=== PATIENT | male | born 1940 | race Caucasian/White ===

== ENCOUNTER → 2020-10-01 11:21 | Outpatient (CLI) | payer MEDICARE, OTHER, SELFPAY ==
[2020-10-01 13:15] LABS: COVID19 -Nasal RAPID Negative (Negative)
== END ==
PROVIDERS: Family Provider Family Medicine; PCP Family Medicine; Visit Provider Physician Assistant
DX: Z01.812 Encounter for preprocedural laboratory examination (principal); Z20.822 Contact with and (suspected) exposure to COVID-19
CPT/HCPCS: 87635; C9803

== ENCOUNTER → 2020-10-02 10:40 | Outpatient (CLI) | payer MEDICARE, OTHER, SELFPAY ==
--- NOTE | 2020-10-02 11:46 | PM.TREADMILL ---
Cardiac Stress Test Report Referral & Results Date Patient Seen: 10/02/20 Time Patient Seen: 11:46 Requesting provider: Prieto Best Indication: chest pain Rest ECG: sinus rhythm Procedure Note: After Lexiscan injection had minimal dyspnea and no chest discomfort No significant ST changes on ECG after Lexiscan injection Occasional PVCs Impression: Normal Lexiscan stress test MIBI images pending Please note: Actual ECG tracings can be found in the PACS system.
--- NOTE | 2020-10-03 23:45 | DI.NM.S_ITS ---
DATE OF SERVICE: 10/02/2020 PROCEDURE PERFORMED: Pharmacologic vasodilator stress and rest myocardial perfusion imaging with gating to assess ejection fraction and regional wall motion. ORDERING PROVIDER: Dr. Prieto Best. INDICATIONS: The patient is an 80-year-old male with a history of CABG with exertional chest discomfort. PHARMACOLOGIC STRESS: Per protocol, 0.4 mg of regadenoson was infused, augmented by low-level walking on the treadmill. With this, he had a normal hemodynamic response, achieving a maximum heart rate of 126 BPM (91% of his predicted maximum). He had a normal blood pressure response and mild dyspnea but no chest discomfort. His resting ECG showed shows normal sinus rhythm with fairly normal ST segments. There were no significant ST-segment shifts with exercise. He had occasional isolated PVCs, but no complex ventricular ectopy. Per protocol, 25.9 millicuries of technetium-99m Myoview was injected and he was imaged 20 minutes later using a gated SPECT acquisition protocol. He returned the following day and was injected with 25.8 millicuries of technetium-99m Myoview while at rest and was imaged 30 minutes later using a gated SPECT acquisition protocol. FINDINGS: 1. Raw data: There is fairly good myocardial tracer uptake although there appears to be at least some diaphragmatic attenuation on the raw data images, but this could not be assessed because he could not lay prone. His lung/heart ratio was normal at 0.34 with a normal TID ratio of 1.04. 2. Quantitated gated SPECT: Post-stress ejection fraction is estimated at 88% without any focal wall motion abnormality and specifically, the inferior wall appears to have fairly normal contractility. The resting ejection fraction is 92% with a similar contraction pattern. Resting end-diastolic volume is normal at 77 mL. 3. Myocardial perfusion imaging: Post-stress supine images show a moderate perfusion defect in the proximal and mid inferior wall, extending into the proximal inferior septum and extending slightly into the distal inferolateral wall, which could be consistent with diaphragmatic attenuation. Again, the patient was unable to lay prone to assess for this. The resting images essentially show a similar perfusion pattern without significant change, although there may be very slight improvement in the defect distally, but this is nonspecific. IMPRESSION: 1. Probable abnormal but low risk myocardial perfusion study. 2. Moderate, predominantly fixed proximal to mid inferior and distal inferolateral perfusion defect that likely reflects nontransmural previous infarction with minimal sarah-infarct ischemia, although the lack of a wall motion abnormality in this distribution reduces the specificity of this finding and this could reflect diaphragmatic attenuation. There is no compelling evidence for any significant myocardial ischemia. 3. Normal left ventricular systolic function without any focal wall motion abnormality. 4. No angina or ECG evidence of ischemia with pharmacologic vasodilator stress and exercise. Damon Laguerre - HAYDEN/renee/renato doc#: [id number]/job#: [id number] dd: 10/03/2020 16:18:00 dt: 10/03/2020 17:42:00 DICTATING MD/COPIES TO: Buzz Wheeler MD; Prieto Best, COPIES MNE: DELLA;
== END ==
PROVIDERS: Family Provider Family Medicine; PCP Family Medicine; Referring Provider Family Medicine; Visit Provider Family Medicine
DX: R07.89 Other chest pain (principal)
CPT/HCPCS: 78452; 93017; A9502; J2785

== ENCOUNTER → 2021-09-30 13:03 | Outpatient (CLI) | payer MEDICARE, OTHER, SELFPAY ==
[2021-09-30 13:43] LABS: COVID19 -Nasal RAPID Negative (Negative)
== END ==
PROVIDERS: Family Provider Family Medicine; PCP Family Medicine; Visit Provider Family Medicine Sleep Medicine
DX: Z20.822 Contact with and (suspected) exposure to COVID-19 (principal)
CPT/HCPCS: 87635; C9803

== ENCOUNTER → 2021-10-01 08:59 | Outpatient (CLI) | payer MEDICARE, OTHER, SELFPAY ==
--- NOTE | 2021-10-01 | DI.NM.S_ITS ---
PROCEDURE: NM KAPIL PERF SPECT R&S PHARM Rest and pharmacological stress myocardial perfusion SPECT with gated imaging and ejection fraction RADIOPHARMACEUTICAL: 11.2 mCi Tc-99m tetrafosmin IV at rest and 26.8 mCi Tc-99m tetrafosmin IV at peak effect of pharmacological stress. [id number] was performed. INDICATIONS: Presence of aortocoronary bypass graft TECHNIQUE: Radiopharmaceutical was injected at peak stress test, and also at rest. SPECT images were obtained. SPECT myocardial perfusion images were displayed in short axis, horizontal long axis, and vertical long axis views. Gated images were reviewed using [employer] software. COMPARISON: None. CARDIAC STRESS: A pharmacologic stress test was performed under the supervision of an attending staff, using an infusion of lexiscan 0.4mg IV X1. Hemodynamic data: There is normal blood pressure and heart rate response to pharmacologic stress. Symptoms: The patient denied anginal chest pain. Aminophylline: none EKG: No diagnostic changes of ischemia; no ectopy. FINDINGS: Raw data: There is good myocardial uptake of radiotracer. No significant motion artifacts. Vagw-[id number] ratio is 0.37 (normal is less than 0.38 for tetrafosmin tracer). Left ventricle function: Gated images demonstrate normal left ventricular wall thickening. No segmental wall motion abnormalities. No transient ischemic dilation; TID is 0.86 (normal less than 1.3). Left ventricle resting end diastolic volume is 79 mL. Left ventricle stress ejection fraction is 87%; normal range is above 45%. Myocardial perfusion: There is a moderately intense fixed inferior wall defect that resolves with prone imaging, suggesting diaphragmatic attenuation artifact than true prior infarction. No ischemia. IMPRESSION: Low risk, probably normal pharmaceutical nuclear stress test. 1) There is a moderately intense fixed inferior wall defect that resolves with prone imaging, suggesting diaphragmatic attenuation artifact than true prior infarction. No ischemia. 2) Normal left ventricular size, wall motion, and systolic function (EF post stress 87%). 3) No ECG evidence of ischemia. 4) No angina during the study. 5) Compared to the nuc stress test 10/02/2020, prone images are done on this study and today's study is probably normal due to resolution of perfusion defect with prone imaging (compared to probably abnormal on 10/02/2020 when prone imaging was not done). Dictated by: Harmeet Hoskins MD on 10/01/2021 at 17:07 Approved by: Harmeet Hoskins MD on 10/01/2021 at 17:10
--- NOTE | 2021-10-01 15:07 | PM.TREADMILL ---
Cardiac Stress Test Report Referral & Results Date Patient Seen: 10/01/21 Time Patient Seen: 15:07 Requesting provider: Harmeet Hoskins Indication: CAD, S/P bypass Rest ECG: sinus rhythm Procedure Note: After Lexiscan injection had minimal dyspnea, no chest pain After Lexiscan injection, no significant ST changes No ectopy Impression: normal Lexiscan stress test Please note: Actual ECG tracings can be found in the PACS system.
== END ==
PROVIDERS: Family Provider Family Medicine; PCP Family Medicine; Referring Provider Internal Medicine Cardiovascular Disease; Visit Provider Internal Medicine Cardiovascular Disease
DX: I20.8 Other forms of angina pectoris (principal); Z95.1 Presence of aortocoronary bypass graft; Z95.5 Presence of coronary angioplasty implant and graft
CPT/HCPCS: 78452; 93017; A9502; J2785